=== PATIENT | male | born 1965 | race Caucasian/White ===

== ENCOUNTER → 2021-10-08 | Outpatient (CLI) | payer BC ==
[~2021-10-08] MED LIST: ACHD5005 PO; AMLO-251 PO; BIKTARVY PO; HYDR25TA4 PO; KETO10TA PO; MULT-974 PO; NITR-65 PO; TMSL.4C PO
--- NOTE | 2021-10-08 16:00 | Diagnostic Imaging Report ---
INDICATION: Left UPJ calculus. COMPARISON: None. FINDINGS: Two frontal radiographic views of the abdomen were obtained. A 4 mm calculus is identified projecting just superior to the left L3 transverse process. This could be on the basis of a ureteral calculus. There is no prior available for comparison. No unexpected radiopaque foreign bodies are seen. Small bowel loops are nondistended. There is no large collection of free intraperitoneal air. IMPRESSION: 1. Potential left ureteral calculus. Correlation with CT would be of benefit. 2. Nonobstructed small bowel gas pattern. Dictated by: Dictated on workstation # [id number]
== END ==
LOC: RAD 13:06
PROVIDERS: ATTEND Urology
DX: N20.1 Calculus of ureter (principal)
CPT/HCPCS: 74018

== ENCOUNTER 2021-10-09 06:40 | Day surgery (SDC) | payer BC ==
[2021-10-09] VITALS (11 sets, daily range): BP systolic 114–148; BP diastolic 67–95
[~2021-10-09] VITALS: Ht 172.7 cm; Wt 81.8 kg
--- NOTE | 2021-10-09 06:55 | Progress Note-Pre Operative ---
Pre-Operative Progress Note Date of Available H&P: Oct 09, 2021 Date H&P Reviewed: Oct 09, 2021 Time H&P Reviewed: 06:55 Changes from last HP NONE Pre-Operative Diagnosis: LT PROXIMAL URETERAL STONE CARLTON OKEEFE MD Oct 09, 2021 06:55
--- NOTE | 2021-10-09 07:48 | Diagnostic Imaging Report ---
EXAMINATION: Abdominal radiographs, single view. DATE: October 09, 2021. CLINICAL INDICATION: 56-year-old male, shock wave lithotripsy . Renal stone. COMPARISON: October 08, 2021. COMMENTS: There is an area of calcific attenuation measuring approximately 4 mm in size to the left of midline at the level of L2-L3 which appears very similar in appearance and position compared to the prior exam. There is no additional radiographically visible potential renal or ureteral stone. There are no abnormally distended gas filled segments of bowel. The upper abdomen is not entirely included in the [id number]. IMPRESSION: 1. Potential 4 mm left ureteral stone with similar appearance to the comparison exam. This may be more optimally localized with CT abdomen pelvis without contrast if needed. Dictated by: Dictated on workstation # [id number]
[2021-10-09] MEDS ORDERED: cefTRIAXone 1 GM PRE-MIX 50 ML IV ONE ×2 (08:05→08:15)
[2021-10-09] MEDS ORDERED: LACTATED RINGERS 1,000 ML IV PRN (08:15)
[2021-10-09] MEDS ORDERED: MULT-974 PO (08:46)
[2021-10-09] MEDS ORDERED: ACHD5005 PO (08:46)
[2021-10-09] MEDS ORDERED: BIKTARVY PO (08:46)
[2021-10-09] MEDS ORDERED: HYDR25TA4 PO (08:46)
[2021-10-09] MEDS ORDERED: AMLO-251 PO (08:46)
[2021-10-09] MEDS ORDERED: LIDOCAINE PF 2% 5 ML (XYLOCAINE) VIAL ONE (08:55)
[2021-10-09] MEDS ORDERED: SEVOFLURANE (ULTANE) 15 ML INHAL SOLN ONE (08:55)
[2021-10-09] MEDS ORDERED: proPOfol 200 MG/20 ML (DIPRIVAN) VIAL IV ONE (08:55)
[2021-10-09] MEDS ORDERED: ONDANSETRON 4 MG/2 ML (SDV) Z0FRAN ONE (08:55)
[2021-10-09] MEDS ORDERED: MIDAZOLAM 2 MG/2 ML (VERSED) VIAL ONE (08:55)
[2021-10-09] MEDS ORDERED: fentaNYL INJ 100 MCG/2 ML AMP ONE (08:55)
--- NOTE | 2021-10-09 09:14 | Progress Note-Post Operative ---
Post-Operative Progess Note Surgeon (s)/Geological Science Teacher (s) Surgeon CARLTON OKEEFE MD Geological Science Teacher: NONE Pre-Operative Diagnosis LT PROXIMAL URETERAL STONE Post-Operative Diagnosis SAME Procedure & Operative Findings Date of Procedure 10/09/21 Procedure Performed/Findings LT ESWL Anesthesia Type GENERAL Estimated Blood Loss Estimated blood loss (mL): NONE Specimens/Packing Specimens Removed NONE Packing: NONE CARLTON OKEEFE MD Oct 09, 2021 09:14
--- NOTE | 2021-10-09 09:16 | Discharge Inst-Urology ---
Discharge Inst-Urology Reconcile Patient Problems Problems Reviewed?: Yes Final Diagnosis LT PROXIMAL URETERAL STONE Patient Instructions/Follow Up Plan/Assessment/Instructions Please make appointment to been seen in office 10/18, KUB prior to it. KUB on way home Post ESWL instructions Increase oral fluids for 48 hours and then as needed. Diet and Activity as tolerated. If questions or concerns contact your physician Or seek help at emergency department. CARLTON OKEEFE MD Oct 09, 2021 09:16
--- NOTE | 2021-10-09 09:53 | Anesthesia-General Post-Op ---
General Patient Condition Mental Status/LOC: Same as Preop Cardiovascular: Satisfactory Nausea/Vomiting: Absent Respiratory: Satisfactory Pain: Controlled Complications: Absent Post Op Complications Complications None Follow Up Care/Instructions Patient Instructions None needed. Anesthesia/Patient Condition Patient Condition Patient is doing well, no complaints, stable vital signs, no apparent adverse anesthesia problems. No complications reported per nursing. JAVI BLANDON CRNA Oct 09, 2021 09:53
[2021-10-09] MEDS ORDERED: HYDROmorphone 2 MG/ML VIAL (DILAUDID) IV ONE (10:00)
[2021-10-09] MEDS ORDERED: MEPERIDINE (DEMEROL) INJ 50 MG/ML IVP ONE (10:00)
[2021-10-09] MEDS ORDERED: morphine INJ 10 MG/ML 1ML (SYR OR VIAL) IVP ONE (10:00)
[2021-10-09] MEDS ORDERED: ONDANSETRON 4 MG/2 ML (SDV) Z0FRAN IVP PRN (10:00)
[2021-10-09] MEDS ORDERED: NITR-65 PO (11:40)
[2021-10-09] MEDS ORDERED: KETO10TA PO (11:40)
[2021-10-09] MEDS ORDERED: TMSL.4C PO (11:40)
--- NOTE | 2021-10-09 11:45 | Diagnostic Imaging Report ---
Clinical Indication: Post left ESWL. Exam: X-ray of the abdomen supine views. Comparison: X-ray of the abdomen dated 10/09/2021 at 0718 hours. Findings and impression: 1: Stable 4 mm focal area of calcification seen left of the L2-L3 disk space. 2: Stable focal calcification left pelvis region which may represent phleboliths. Amorphous calcifications in the low midline pelvis region. Prostate calcifications may be considered. 3: The remainder of this exam shows no significant interval change compared to the prior study of comparison. Dictated by: Dictated on workstation # [id number]
--- NOTE | 2021-10-09 12:38 | OPERATIVE REPORT ---
DATE OF SERVICE: 10/09/2021 PREOPERATIVE DIAGNOSIS: Left proximal ureteral stone. POSTOPERATIVE DIAGNOSIS: Left proximal ureteral stone. OPERATION PERFORMED: Left ESWL. SURGEON: Aldo Okeefe MD ANESTHESIA: General. COMPLICATIONS: None. DESCRIPTION OF PROCEDURE: Under satisfactory general anesthesia, the patient in supine position on the ESWL table, the left proximal ureteral stone was localized. Shocks were delivered at kV of 6. Total of 3000 shocks completely fragmented the stone that was not visualized anymore. The patient received 40 mg of Lasix and 30 mg of Toradol IV at the end of the procedure. He tolerated the procedure and anesthesia well and was sent to recovery room in a stable condition. Job ID: [id number] DocumentID: [id number] Dictated Date: 10/09/2021 09:40:15 Java Security Engineer Date: 10/09/2021 12:37:05 Dictated By: ALDO OKEEFE MD
== END 2021-10-09 12:05 | disposition home or self-care (01) ==
LOC: SDC 06:40
PROVIDERS: ATTEND Urology
DX: N20.1 Calculus of ureter (principal); I10 Essential (primary) hypertension; N40.0 Benign prostatic hyperplasia without lower urinary tract symptoms; Z79.899 Other long term (current) drug therapy
CPT/HCPCS: 74018; 87081

== ENCOUNTER → 2021-10-18 | Outpatient (CLI) | payer BC ==
--- NOTE | 2021-10-18 13:44 | Diagnostic Imaging Report ---
INDICATION: Left flank pain KUB 1:19 PM Bowel gas pattern is normal. There are no pathologic masses or calcifications seen. IMPRESSION: Unremarkable abdomen. Fecal material in the colon and gastroesophageal tract could obscure calculus. Dictated by: Dictated on workstation # [id number]
== END ==
LOC: RAD 13:02
PROVIDERS: ATTEND Urology
DX: N20.1 Calculus of ureter (principal)
CPT/HCPCS: 74018